=== PATIENT | male | born 1985 | race Caucasian/White ===

== ENCOUNTER 2018-10-16 01:47 | Inpatient (IN) | payer MEDICAID, OTHER ==
[~2018-10-16] VITALS: Ht 162.6 cm; Wt 60.3 kg
[2018-10-16] VITALS (7 sets, daily range): BP systolic 124–145; BP diastolic 79–94; PULSE 90–111; RESP 20; Ht 162.6 cm; Wt 60.3 kg
[~2018-10-16 01:47] MED LIST: CLON0.1T95 PO; METO25TA4 PO; SEVE800T7 PO
[2018-10-16] MEDS ORDERED: VANCOMYCIN 1 GM (PMX) 250 ML IVPB STA (01:58)
[2018-10-16] MEDS ORDERED: CEFEPIME 2GM/50 ML (PMX) 50 ML IVPB STA (01:58)
[2018-10-16] MEDS ORDERED: BISACODYL (EC) 5 MG TAB PO PRN (03:00)
[2018-10-16] MEDS ORDERED: ONDANSETRON 4 MG INJ IV PRN (03:00)
[2018-10-16] MEDS ORDERED: NACL 0.9% 3 ML SYG IV SCH (03:00)
[2018-10-16] MEDS ORDERED: DOCUSATE SODIUM 100 MG CAP PO PRN (03:00)
--- NOTE | 2018-10-16 03:13 | ERD ---
ER Documentation Chief Complaint Chief Complaint BACK PAIN/ POSTERIOR PLEURAL PAIN X'S 1 DAY. COUGH X'S 3 DAYS HPI This is a 33-year-old male who presents for evaluation of pleural pain, and fever for the last day. Patient has been having a cough with productive sputum. He has no nausea or vomiting, he has not had hemoptysis, he has not had leg swelling. He has had no shortness of breath. ROS All systems reviewed and are negative except as per history of present illness. Medications Home Meds Reported Medications Metoprolol Tartrate* (Lopressor*) 25 Mg Tablet, 25 MG PO DAILY, TAB 10/14/14 Sevelamer Carbonate* (Renvela*) 800 Mg Tablet, 5 TAB PO TID, TAB 10/14/14 Clonidine Hcl (KAPVAY) 0.1 Mg Tab.er.12h, 0.1 MG PO DAILY 02/18/13 Allergies Allergies: Coded Allergies: No Known Allergy (Unverified , 10/14/14) PMhx/Soc History of Surgery: No Anesthesia Reaction: No Hx Neurological Disorder: No Hx Respiratory Disorders: No Hx Cardiac Disorders: Yes (HTN, HD ()) Hx Psychiatric Problems: No Hx Miscellaneous Medical Probl: Yes (KIDNEY PROBLEMS ON DIALYSILS) Hx Alcohol Use: No Hx Substance Use: No Hx Tobacco Use: No Smoking Status: Never smoker Physical Exam Vitals Vital Signs Date Temp Pulse Resp B/P (MAP) Pulse Ox O2 O2 Flow FiO2 Time Delivery Rate 10/16/18 100.4 108 20 138/92 99 01:50 (107) Physical Exam Const: No acute distress, nontoxic-appearing Head: Atraumatic Eyes: Normal Conjunctiva ENT: Normal External Ears, Nose and Mouth. Neck: Full range of motion. No meningismus. Resp: Clear to auscultation bilaterally, no wheezes rales or rhonchi Cardio: Regular rate and rhythm, no murmurs Abd: Soft, non tender, non distended. Normal bowel sounds Skin: No petechiae or rashes Back: No midline or flank tenderness Ext: No cyanosis, or edema Neur: Awake and alert Psych: Normal Mood and Affect Result Diagram: 10/16/18 0206 10/16/18 0206 Results 24 hrs Laboratory Tests Test 10/16/18 02:06 10/16/18 02:12 White Blood Count 11.8 10^3/ul Red Blood Count 4.08 10^6/ul Hemoglobin 12.8 g/dl Hematocrit 39.1 % Mean Corpuscular Volume 95.8 fl Mean Corpuscular Hemoglobin 31.4 pg Mean Corpuscular Hemoglobin Concent 32.7 g/dl Red Cell Distribution Width 12.9 % Platelet Count 195 10^3/UL Mean Platelet Volume 9.5 fl Immature Granulocytes % 0.300 % Neutrophils % 77.1 % Lymphocytes % 14.2 % Monocytes % 7.8 % Eosinophils % 0.3 % Basophils % 0.3 % Nucleated Red Blood Cells % 0.0 /100WBC Immature Granulocytes # 0.040 10^3/ul Neutrophils # 9.1 10^3/ul Lymphocytes # 1.7 10^3/ul Monocytes # 0.9 10^3/ul Eosinophils # 0.0 10^3/ul Basophils # 0.0 10^3/ul Nucleated Red Blood Cells # 0.0 10^3/ul Prothrombin Time 12.9 Sec Prothrombin Time Ratio 1.0 INR International Normalized Ratio 0.96 Activated Partial Thromboplast Time 34.9 Sec Sodium Level 142 mmol/L Potassium Level 4.9 mmol/L Chloride Level 96 mmol/L Carbon Dioxide Level 30 mmol/L Anion Gap 16 Blood Urea Nitrogen 47 mg/dl Creatinine Pending Est Glomerular Filtrat Rate mL/min Pending Glucose Level 104 mg/dl Lactic Acid Level 1.1 mmol/L Calcium Level 9.2 mg/dl Total Bilirubin 0.4 mg/dl Direct Bilirubin 0.00 mg/dl Indirect Bilirubin 0.4 mg/dl Aspartate Amino Transf (AST/SGOT) 9 IU/L Alanine Aminotransferase (ALT/SGPT) 24 IU/L Alkaline Phosphatase 95 IU/L Troponin I Pending Total Protein 7.7 g/dl Albumin 4.6 g/dl Globulin 3.10 g/dl Albumin/Globulin Ratio 1.48 POC Venous Lactate 1.1 mmol/L Current Medications Medications Dose Sig/Arturo Start Time Status Last (Trade) Ordered Route PRN Stop Time Admin Dose Reason Admin Vancomycin 250 ml @ ONCE STAT 10/16/18 10/16/18 HCl 125 mls/hr IVPB 01:58 02:52 10/16/18 03:57 Cefepime HCl 50 ml @ ONCE STAT 10/16/18 DC 10/16/18 100 mls/hr IVPB 01:58 02:28 10/16/18 02:27 Ceftriaxone 50 ml @ Q24H IVPB 10/16/18 Sodium 100 mls/hr 09:00 Azithromycin 250 ml @ Q24H IVPB 10/16/18 250 mls/hr 08:00 IV Flush 3 ml PER 10/16/18 (NS 3 ml) PROTOCOL IV 03:00 Ondansetron 4 mg Q6H PRN 10/16/18 HCl (Zofran IV 03:00 Inj) NAUSEA/VOMITI NG 650 mg Q6H PRN 10/16/18 Acetaminophen PO .PAIN 1-3 03:00 (Tylenol OR TEMP Tab) Docusate 100 mg Q12H PRN 10/16/18 Sodium PO 03:00 (Colace) .CONSTIPATION Bisacodyl 5 mg DAILY PRN 10/16/18 (Dulcolax) PO 03:00 .CONSTIPATION Procedures/MDM Is a 33-year-old male who presents for evaluation of fever, on exam, patient is nontoxic-appearing. He has end-stage renal disease, and is on dialysis, thus he is at high risk for infection, and he met sepsis criteria, a code sepsis was called, his lactate was within normal limits, he had no evidence of severe sepsis or septic shock. As his symptoms were most likely infectious in nature, I have a lower suspicion for pulmonary embolism, I discussed findings with patient, he will be treated with broad-spectrum antibiotics, with vancomycin and cefepime. He remained normotensive, and he is anuric, thus I do not feel that he should receive 30 cc/kg of IV fluids, as this may put him into pulmonary edema. Accepting Care Team: Current data and ongoing care discussed. Primary: [place] Consulting: None Outstanding Data: none EKG: Rate/Rhythm: Sinus tachycardia QRS, ST, T-waves: No changes consistent w/ acute ischemia Impression: No evidence of ischemia or arrhythmia Departure Diagnosis: Primary Impression: Fever Fever type: unspecified Qualified Codes: R50.9 - Fever, unspecified Additional Impressions: Cough Pneumonia Pneumonia type: due to unspecified organism Laterality: unspecified laterality Lung location: unspecified part of lung Qualified Codes: J18.9 - Pneumonia, unspecified organism Condition: HAIR Philippe MD October 16, 2018 03:13
[2018-10-16] MEDS ORDERED: CALC667C PO (03:23)
[2018-10-16] MEDS ORDERED: NEPH PO (03:23)
[2018-10-16] MEDS ORDERED: DIPHENHYDRAMINE 50 MG INJ IV ONE (05:00)
[2018-10-16] MEDS ORDERED: DIPHENHYDRAMINE 50 MG CAP PO ONE (05:30)
[2018-10-16] MEDS ORDERED: SOD CHLORIDE 0.9% 250 ML IV ONE (05:30)
--- NOTE | 2018-10-16 05:30 | HP ---
Date/Time of Note Date/Time of Note DATE: 10/16/18 TIME: 05:24 Assessment/Plan VTE Prophylaxis SCD applied (from Nsg): Yes Pharmacological prophylaxis: NA/contraindicated Pharm contraindication: low risk/ambulating Lines/Catheters IV Catheter Type (from Nrsg): Saline Lock Assessment/Plan Hospital Course This is a 33-year-old male being admitted to the [facility] floor for: #1 sepsis: Viral versus bacterial, suspect community-acquired pneumonia. Chest x-ray though is clear. Will treat at the current time with ceftriaxone and azithromycin. Patient is already received vancomycin and cefepime in the emergency department. Blood cultures are pending. #2 suspect community-acquired pneumonia: Possibly atypical. Chest x-ray is clear on exam. Nonetheless given his sepsis and cough with productive phlegm will treat with antibiotics of ceftriaxone and azithromycin. #3 left flank pain: We will obtain a CT of the abdomen pelvis without contrast to further evaluate. #4 end-stage renal disease: Patient is on hemodialysis Friday. Will consult nephrology. Resume home medications. #5 hypertension: Resume patient's home blood pressure medications. #6 DVT GI prophylaxis: SCDs, no GI prophylaxis indicated Further treatment strategy will be implemented as per the clinical course. Result Diagram: 10/16/18 0206 10/16/18 0206 Results 24hrs Laboratory Tests Test 10/16/18 02:06 10/16/18 02:12 White Blood Count 11.8 #H Red Blood Count 4.08 L Hemoglobin 12.8 L Hematocrit 39.1 L Mean Corpuscular Volume 95.8 Mean Corpuscular Hemoglobin 31.4 Mean Corpuscular Hemoglobin Concent 32.7 Red Cell Distribution Width 12.9 Platelet Count 195 Mean Platelet Volume 9.5 Immature Granulocytes % 0.300 Neutrophils % 77.1 H Lymphocytes % 14.2 L Monocytes % 7.8 Eosinophils % 0.3 Basophils % 0.3 Nucleated Red Blood Cells % 0.0 Immature Granulocytes # 0.040 H Neutrophils # 9.1 H Lymphocytes # 1.7 Monocytes # 0.9 Eosinophils # 0.0 Basophils # 0.0 Nucleated Red Blood Cells # 0.0 Prothrombin Time 12.9 Prothrombin Time Ratio 1.0 INR International Normalized Ratio 0.96 Activated Partial Thromboplast Time 34.9 Sodium Level 142 Potassium Level 4.9 Chloride Level 96 L Carbon Dioxide Level 30 Anion Gap 16 H Blood Urea Nitrogen 47 H Creatinine 13.58 H Est Glomerular Filtrat Rate mL/min 4 L Glucose Level 104 Lactic Acid Level 1.1 Calcium Level 9.2 Total Bilirubin 0.4 Direct Bilirubin 0.00 Indirect Bilirubin 0.4 Aspartate Amino Transf (AST/SGOT) 9 L Alanine Aminotransferase (ALT/SGPT) 24 Alkaline Phosphatase 95 Troponin I < 0.012 Total Protein 7.7 Albumin 4.6 Globulin 3.10 Albumin/Globulin Ratio 1.48 POC Venous Lactate 1.1 HPI/ROS Admit Date/Time Admit Date/Time Hx of Present Illness Chief complaint: Fever and cough x2 days This is a 33-year-old male who presents for evaluation of pleural pain, and fever for 2 days.. Patient has been having a cough with productive sputum. He has no nausea or vomiting, he has not had hemoptysis. He has had no shortness of breath. He does report his last dialysis was on . He also is reporting left-sided flank pain. Patient is oliguric. Allergies: NKDA Medications: See Jul Const: As per HPI Eyes : No pain discharge or redness or change in visual acuity ENT: No pain, sore throat, congestion, congestion, dysphagia or discharge Respiratory: As per HPI Cardiovascular: No chest pain, palpitation, PND, or edema GI : no change in appetite, abdominal pain, nausea, vomiting, diarrhea, constipation, or change in the color his stool Genitourinary: No dysuria, hematuria, flank pain , discharge or CVA tenderness Musculoskeletal: As per HPI Skin: No rash, bruising or hives Neuro: No headache, dizziness, syncope, seizure, focal weakness Endocrine: No polyuria, polydipsia, temperature intolerance Psych: No hallucination, depression, anxiety or suicidal ideation PMH/Family/Social Past Medical History End-stage renal disease on hemodialysis Friday, hypertension Medications Current Medications Ceftriaxone Sodium 50 ml @ 100 mls/hr Q24H IVPB ; Start 10/16/18 at 09:00 Azithromycin 250 ml @ 250 mls/hr Q24H IVPB ; Start 10/16/18 at 08:00 IV Flush (NS 3 ml) 3 ml PER PROTOCOL IV ; Start 10/16/18 at 03:00 Ondansetron HCl (Zofran Inj) 4 mg Q6H PRN IV NAUSEA/VOMITING; Start 10/16/18 at 03:00 Acetaminophen (Tylenol Tab) 650 mg Q6H PRN PO .PAIN 1-3 OR TEMP; Start 10/16/18 at 03:00 Docusate Sodium (Colace) 100 mg Q12H PRN PO .CONSTIPATION; Start 10/16/18 at 03:00 Bisacodyl (Dulcolax) 5 mg DAILY PRN PO .CONSTIPATION; Start 10/16/18 at 03:00 Diphenhydramine HCl (Benadryl) 50 mg ONCE ONCE PO ; Start 10/16/18 at 05:30; Stop 10/16/18 at 05:31; Status UNV Coded Allergies: No Known Allergy (Unverified , 10/16/18) Past Surgical History Left upper extremity AV fistula Family History Significant Family History: no pertinent family hx Social History Alcohol Use: none Smoking Status: Never smoker Drug Use: none Exam/Review of Systems Vital Signs Vitals Vital Signs Date Temp Pulse Resp B/P (MAP) Pulse Ox O2 O2 Flow FiO2 Time Delivery Rate 10/16/18 98.1 97 18 146/98 95 Room Air 05:03 (114) Exam Exam General: Lying in bed in no acute distress, but he does report discomfort of the left flank HEENT: Atraumatic, normocephalic. The pupils are equal, round and reactive. Extraocular motor are intact Neck: Supple with full range of motion. No rigidity or meningismus Chest: Nontender Lungs: Coarse breath sounds bilaterally, nonlabored breathing, clear phlegm Heart: Normal S1-S2, Regular rhythm and rate. No murmur, S3, or S4 Abdomen: Soft , nontender, nondistended , bowel sounds are present. No guarding no rebound tenderness , No masses or organomegaly. No costovertebral temporal angle mass Extremities: Normal to inspection, no edema no cyanosis Skin: Left upper extremity AV fistula Neurologic: Normal mental status, speech normal, cranial nerves II through XII are intact, motor and sensory are intact, no focal weakness Additional Comments PROCEDURE: Chest. CLINICAL INDICATION: Chest pain. TECHNIQUE: Single frontal view of the chest was obtained. COMPARISON: 02/18/2013. FINDINGS: The cardiac silhouette is within normal limits. The aortic arch is unremarkable. There is no focal consolidation, vascular congestion or pleural effusion. There is no pneumothorax. IMPRESSION: No evidence for active cardiopulmonary disease. .Moises Hilario MD, Date Time Electronically viewed and signed by .Moises Hilario MD, on 10/16/2018 03:51 .T/ CC: HAIR BANKS MD [id number] JONELLE BENAVIDES October 16, 2018 05:30
[2018-10-16] MEDS ORDERED: AZITHROMYCIN 500MG/NS (PMX) 250 ML IVPB SCH (08:00)
[2018-10-16] MEDS ORDERED: CEFTRIAXONE 2 GM/50 ML (PMX) 50 ML IVPB SCH (09:00)
[2018-10-16] MEDS: ACETAMINOPHEN 325 MG TAB PO PRN (09:29)
--- NOTE | 2018-10-16 10:16 | QN ---
Documentation Comment 33 yo M w/ESRD/HD tx, here w/cough/subjective fevers/left upper back pain,found to have left sided PNA.. We will change antibiotic to cefepime and vancomycin to cover healthcare acquired pneumonia in the setting of hemodialysis treatment. Breathing treatments and cough medications. NSAIDs for pleuritic pain. Obtain a sputum cu lture if possible. Follow-up nephrology recommendations regarding dialysis sessions. Patient was seen in collaboration with Dr. Wilson. ADI KATE NP October 16, 2018 10:16
[2018-10-16] MEDS ORDERED: VANCOMYCIN IV PER PHARMACY XX SCH (10:30)
[2018-10-16] MEDS: GUAIFENESIN/DM (SR) TAB PO SCH ×2 (10:54→19:35)
--- NOTE | 2018-10-16 13:37 | RADRPT ---
LAVELL COKER :1985 Sex:M Status: RECONFIRMED ACC:[id number] Exam DATE:2018-10-16 02:07:24 Vent Rate: 101 bpm RR Interval: 0 msec GA Interval: 152 msec QRS Duration: 90 msec QT Interval: 330 msec QTC Interval: 427 msec P-R-T Eitzen: 63 - 70 - 61 degrees Sinus tachycardia Possible Left atrial enlargement Borderline ECG Electronically Signed By: [facility]
[2018-10-16] MEDS: ALBUTEROL/IPRATROPIUM (NEB) 3 ML AMP HHN SCH ×2 (14:33→19:38)
[2018-10-16] MEDS: morphine 2 MG INJ IV PRN ×3 (15:34→23:13)
[2018-10-16] MEDS: IBUPROFEN 400 MG TAB PO PRN (23:11)
[2018-10-17] VITALS (22 sets, daily range): BP systolic 109–166; BP diastolic 70–110; PULSE 71–89; RESP 16–24
[2018-10-17] MEDS: CEFEPIME 1GM/50 ML (PMX) 50 ML IVPB SCH (03:05)
[2018-10-17] MEDS: GUAIFENESIN/DM (SR) TAB PO SCH ×2 (08:31→21:01)
[2018-10-17] MEDS: IBUPROFEN 400 MG TAB PO PRN ×4 (08:31→20:37)
[2018-10-17] MEDS: ALBUTEROL/IPRATROPIUM (NEB) 3 ML AMP HHN SCH ×3 (08:37→20:32)
--- NOTE | 2018-10-17 10:29 | PN ---
Date/Time of Note Date/Time of Note DATE: 10/17/18 TIME: 10:29 Assessment/Plan VTE Prophylaxis Risk score (from Nsg)>0 risk: 1 SCD applied (from Nsg): Yes Pharmacological prophylaxis: NA/contraindicated Pharm contraindication: low risk/ambulating Lines/Catheters IV Catheter Type (from Nrs): Saline Lock Assessment/Plan Hospital Course SUBJECTIVE: Lying in bed comfortably. With improved left upper back pain. No fevers. No coughing. OBJECTIVE: Vital signs-see below PHYSICAL EXAM: Constitutional: Adequately built,not in acute distress. HEENT: Head atraumatic and normocephalic. Eyes: Extraocular muscles intact. Anicteric sclerae. Pupils equal bilaterally, reactive to light. NECK: Supple without lymph node. CHEST: Clear and good breath sounds equally. No wheezing. No rhonchi. HEART: S1, S2. Regular rate and rhythm. ABDOMEN: Soft/non tender with no rebound tenderness. Bowel sounds were present. EXTREMITIES: No cyanosis, clubbing or edema. NEUROLOGIC: Alert and oriented x3. No focal deficit. No sensory deficit. PSYCHOSOCIAL: No signs of depression. INTEGUMENTARY: No open wounds. Access: Left upper extremity AV shunt ASSESSMENT AND PLAN:33 yo M w/ESRD/HD tx, here w/cough/subjective fevers/left upper back pain,found to have left sided PNA.. Healthcare acquired pneumonia. -Clinically improving -Continue cefepime/vancomycin with likely transition to oral tomorrow -PRN bronchodilators, cough medications ESRD/HD TTS -Dialysis today -Management per supervisor hand workers Anemia of ESRD -Stable H&H -Epogen per nephrology team as indicated Hyperkalemia -Management per nephrology Hypertension -Stable Mineral bone disorders -Resume renal vitamins/phosphate binders DVT prophylaxis: SCDs Disposition: Patient is scheduled for hemodialysis. Monitor renal function closely. Continue IV antimicrobial with possible oral transition in 24 to 48 hours. Patient was seen in collaboration with Dr. Preciado. Result Diagram: 10/17/18 0529 10/17/18 0529 Results 24hrs Laboratory Tests Test 10/17/18 05:29 White Blood Count 9.3 # Red Blood Count 3.34 L Hemoglobin 10.5 L Hematocrit 32.4 L Mean Corpuscular Volume 97.0 Mean Corpuscular Hemoglobin 31.4 Mean Corpuscular Hemoglobin Concent 32.4 Red Cell Distribution Width 12.7 Platelet Count 157 Mean Platelet Volume 10.3 Immature Granulocytes % 0.400 Neutrophils % 71.4 Lymphocytes % 18.4 Monocytes % 8.5 Eosinophils % 1.0 Basophils % 0.3 Nucleated Red Blood Cells % 0.0 Immature Granulocytes # 0.040 H Neutrophils # 6.7 Lymphocytes # 1.7 Monocytes # 0.8 Eosinophils # 0.1 Basophils # 0.0 Nucleated Red Blood Cells # 0.0 Sodium Level 137 Potassium Level 5.7 H Chloride Level 97 Carbon Dioxide Level 27 Anion Gap 13 Blood Urea Nitrogen 66 H Creatinine 17.54 #H Est Glomerular Filtrat Rate mL/min 3 L Glucose Level 88 Calcium Level 9.0 Phosphorus Level 5.2 H Magnesium Level 2.8 H Total Bilirubin 0.2 Direct Bilirubin 0.00 Indirect Bilirubin 0.2 Aspartate Amino Transf (AST/SGOT) < 8 L Alanine Aminotransferase (ALT/SGPT) 15 Alkaline Phosphatase 62 Total Protein 6.6 # Albumin 3.7 Globulin 2.90 Albumin/Globulin Ratio 1.27 Exam/Review of Systems Exam Vitals Vital Signs Date Temp Pulse Resp B/P (MAP) Pulse Ox O2 O2 Flow FiO2 Time Delivery Rate 10/17/18 96 21 08:42 10/17/18 83 20 08:41 10/17/18 97.4 109/70 04:00 (83) 10/16/18 Room Air 14:53 Intake and Output 10/16/18 10/16/18 10/17/18 1515:00 23:00 07:00 IntakeIntake Total 600 ml 250 ml BalanceBalance 600 ml 250 ml Results Results 24hrs Laboratory Tests Test 10/17/18 05:29 White Blood Count 9.3 # Red Blood Count 3.34 L Hemoglobin 10.5 L Hematocrit 32.4 L Mean Corpuscular Volume 97.0 Mean Corpuscular Hemoglobin 31.4 Mean Corpuscular Hemoglobin Concent 32.4 Red Cell Distribution Width 12.7 Platelet Count 157 Mean Platelet Volume 10.3 Immature Granulocytes % 0.400 Neutrophils % 71.4 Lymphocytes % 18.4 Monocytes % 8.5 Eosinophils % 1.0 Basophils % 0.3 Nucleated Red Blood Cells % 0.0 Immature Granulocytes # 0.040 H Neutrophils # 6.7 Lymphocytes # 1.7 Monocytes # 0.8 Eosinophils # 0.1 Basophils # 0.0 Nucleated Red Blood Cells # 0.0 Sodium Level 137 Potassium Level 5.7 H Chloride Level 97 Carbon Dioxide Level 27 Anion Gap 13 Blood Urea Nitrogen 66 H Creatinine 17.54 #H Est Glomerular Filtrat Rate mL/min 3 L Glucose Level 88 Calcium Level 9.0 Phosphorus Level 5.2 H Magnesium Level 2.8 H Total Bilirubin 0.2 Direct Bilirubin 0.00 Indirect Bilirubin 0.2 Aspartate Amino Transf (AST/SGOT) < 8 L Alanine Aminotransferase (ALT/SGPT) 15 Alkaline Phosphatase 62 Total Protein 6.6 # Albumin 3.7 Globulin 2.90 Albumin/Globulin Ratio 1.27 Medications Medication Current Medications IV Flush (NS 3 ml) 3 ml PER PROTOCOL IV ; Start 10/16/18 at 03:00 Ondansetron HCl (Zofran Inj) 4 mg Q6H PRN IV NAUSEA/VOMITING; Start 10/16/18 at 03:00 Acetaminophen (Tylenol Tab) 650 mg Q6H PRN PO .PAIN 1-3 OR TEMP Last administered on 10/16/18at 09:29; Admin Dose 650 MG; Start 10/16/18 at 03:00 Docusate Sodium (Colace) 100 mg Q12H PRN PO .CONSTIPATION; Start 10/16/18 at 03:00 Bisacodyl (Dulcolax) 5 mg DAILY PRN PO .CONSTIPATION; Start 10/16/18 at 03:00 Cefepime HCl 50 ml @ 100 mls/hr Q24H IVPB Last administered on 10/17/18at 03:05; Admin Dose 100 MLS/HR; Start 10/17/18 at 04:00 Vancomycin HCl (Vanco Iv Per Pharmacy) VANCOMYCIN PER PHARMACY PER PROTOCOL XX ; Start 10/16/18 at 10:30 Albuterol/ Ipratropium (Duoneb) 3 ml Q6HWA RESP THERAPY HHN Last administered on 10/17/18at 08:37; Admin Dose 3 ML; Start 10/16/18 at 14:00 Guaifenesin/ Dextromethorphan (Mucinex Dm) 1 tab BID PO Last administered on 10/17/18at 08:31; Admin Dose 1 TAB; Start 10/16/18 at 10:30 Ibuprofen (Motrin) 400 mg Q6H PRN PO MILD PAIN(1-3) OR TEMP>38C Last adminis tered on 10/17/18at 08:31; Admin Dose 400 MG; Start 10/16/18 at 10:30 Morphine Sulfate (morphine) 1 mg Q4H PRN IV SEVERE PAIN LEVEL 7-10 Last administered on 10/16/18at 23:13; Admin Dose 1 MG; Start 10/16/18 at 14:30 ADI KATE NP October 17, 2018 10:29
--- NOTE | 2018-10-17 10:38 | PN ---
DATE: 10/17/2018 SUBJECTIVE: The patient is stable. No events overnight. The patient is clinically improving. OBJECTIVE: VITAL SIGNS: Blood pressure is 109/70, respiration 18, pulse 71, temperature 97.4. HEENT: Head is normocephalic. NECK: Supple. HEART: Regular rate. LUNGS: Show diminished breath sounds at base. ABDOMEN: Soft, nontender to palpation. No rebound or guarding. EXTREMITIES: Negative for clubbing, cyanosis, no edema. DERMATOLOGIC: No rashes. MUSCULOSKELETAL: No joint effusion. NEUROLOGIC: No change in exam. MEDICATIONS: Have been reviewed. LABORATORY DATA: Has been reviewed. ASSESSMENT AND PLAN: 1. End-stage renal disease. The patient is scheduled for dialysis today. We will dialyze for 3 pinky rs on a 2K bath, calcium 2.5. 2. Anemia. Continue to monitor hemoglobin and hematocrit levels. 3. Mineral bone disorder, monitor calcium and phosphorus levels. Will continue phos binders as need ed. 4. Hypertension. Continue current blood pressure regimen. 5. Sepsis secondary to pneumonia. Continue current antibiotic regimen. Dictated By: HANY COLLAZO DO NR/NTS Conf#: [id number] DID#: [id number] CC: JONELLE BENAVIDES MD;*EndCC*
[2018-10-17] MEDS: MULTIVIT/CA CARB/B CMPLX/FA TAB PO SCH (11:30)
[2018-10-17] MEDS: CALCIUM ACETATE 667 MG CAP PO SCH ×2 (12:56→21:01)
[2018-10-17] MEDS: SEVELAMER CARBONATE 0.8 GM PKT PO SCH ×2 (12:57→21:01)
[2018-10-18] VITALS (19 sets, daily range): BP systolic 117–158; BP diastolic 73–103; PULSE 72–97; RESP 16–20
[2018-10-18] MEDS: CEFEPIME 1GM/50 ML (PMX) 50 ML IVPB SCH (03:56)
[2018-10-18] MEDS: ACETAMINOPHEN 325 MG TAB PO PRN (03:56)
[2018-10-18] MEDS: ALBUTEROL/IPRATROPIUM (NEB) 3 ML AMP HHN SCH ×3 (07:38→19:56)
[2018-10-18] MEDS: SEVELAMER CARBONATE 0.8 GM PKT PO SCH ×3 (08:32→21:49)
[2018-10-18] MEDS: MULTIVIT/CA CARB/B CMPLX/FA TAB PO SCH (08:33)
[2018-10-18] MEDS: GUAIFENESIN/DM (SR) TAB PO SCH ×2 (08:33→21:48)
[2018-10-18] MEDS: CALCIUM ACETATE 667 MG CAP PO SCH ×3 (08:33→21:48)
[2018-10-18] MEDS: METOPROLOL 25 MG TAB PO SCH (08:33)
--- NOTE | 2018-10-18 11:57 | PN ---
Date/Time of Note Date/Time of Note DATE: 10/18/18 TIME: 11:55 Assessment/Plan VTE Prophylaxis Risk score (from Nsg)>0 risk: 2 SCD applied (from Nsg): Yes Pharmacological prophylaxis: NA/contraindicated Pharm contraindication: low risk/ambulating Lines/Catheters [facility]ter [facility]from [facility] Saline Lock Assessment/Plan Hospital Course SUBJECTIVE: Patient coughed out tiny amount of blood-streaked sputum. No shortness of breath, nausea, vomiting, abdominal pain, fever, chills.. OBJECTIVE: Vital signs-see below PHYSICAL EXAM: Constitutional: Adequately built,not in acute distress. HEENT: Head atraumatic and normocephalic. Eyes: Extraocular muscles intact. Anicteric sclerae. Pupils equal bilaterally, reactive to light. NECK: Supple without lymph node. CHEST: Clear and good breath sounds equally. No wheezing. No rhonchi. HEART: S1, S2. Regular rate and rhythm. ABDOMEN: Soft/non tender with no rebound tenderness. Bowel sounds were present. EXTREMITIES: No cyanosis, clubbing or edema. NEUROLOGIC: Alert and oriented x3. No focal deficit. No sensory deficit. PSYCHOSOCIAL: No signs of depression. INTEGUMENTARY: No open wounds. Access: Left upper extremity AV shunt ASSESSMENT AND PLAN:33 yo M w/ESRD/HD tx, here w/cough/subjective fevers/left upper back pain,found to have left sided PNA.. Healthcare acquired pneumonia. -Clinically improving -Continue cefepime/vancomycin -PRN bronchodilators, cough medications -Patient with mild hemoptysis: Go ahead and obtain a contrast CT as patient is getting hemodialysis today. Schedule test prior to hemodialysis. Go ahead and obtain sputum cytology and d-dimer. 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 Follow-up chest CT. DC planning in 24 hours. Patient was seen in collaboration with Dr. Preciado. Result Diagram: 10/18/18 0508 10/18/18 0508 Results 24hrs Laboratory Tests Test 10/18/18 05:08 White Blood Count 7.8 Red Blood Count 3.68 L Hemoglobin 11.4 L Hematocrit 35.3 L Mean Corpuscular Volume 95.9 Mean Corpuscular Hemoglobin 31.0 Mean Corpuscular Hemoglobin Concent 32.3 Red Cell Distribution Width 12.8 Platelet Count 191 # Mean Platelet Volume 9.9 Immature Granulocytes % 0.500 H Neutrophils % 75.1 Lymphocytes % 13.8 L Monocytes % 8.1 Eosinophils % 2.2 Basophils % 0.3 Nucleated Red Blood Cells % 0.0 Immature Granulocytes # 0.040 H Neutrophils # 5.9 Lymphocytes # 1.1 Monocytes # 0.6 Eosinophils # 0.2 Basophils # 0.0 Nucleated Red Blood Cells # 0.0 Sodium Level 138 Potassium Level 5.2 H Chloride Level 99 Carbon Dioxide Level 25 Anion Gap 14 H Blood Urea Nitrogen 40 #H Creatinine 12.94 #H Est Glomerular Filtrat Rate mL/min 4 L Glucose Level 92 Calcium Level 9.4 Phosphorus Level 7.3 #H Total Bilirubin 0.2 Direct Bilirubin 0.00 Indirect Bilirubin 0.2 Aspartate Amino Transf (AST/SGOT) < 8 L Alanine Aminotransferase (ALT/SGPT) 11 L Alkaline Phosphatase 73 Total Protein 7.3 Albumin 4.2 Globulin 3.10 Albumin/Globulin Ratio 1.35 Random Vancomycin Level 12.9 Exam/Review of Systems Exam Vitals Vital Signs Date Temp Pulse Resp B/P (MAP) Pulse Ox O2 O2 Flow FiO2 Time Delivery Rate 10/18/18 97.8 75 20 132/83 96 Room Air 11:28 (99) 10/18/18 21 07:43 Intake and Output 10/17/18 10/17/18 10/18/18 1515:00 23:00 07:00 IntakeIntake Total 600 ml 250 ml OutputOutput Total 3000 ml BalanceBalance -2400 ml 250 ml Results Results 24hrs Laboratory Tests Test 10/18/18 05:08 White Blood Count 7.8 Red Blood Count 3.68 L Hemoglobin 11.4 L Hematocrit 35.3 L Mean Corpuscular Volume 95.9 Mean Corpuscular Hemoglobin 31.0 Mean Corpuscular Hemoglobin Concent 32.3 Red Cell Distribution Width 12.8 Platelet Count 191 # Mean Platelet Volume 9.9 Immature Granulocytes % 0.500 H Neutrophils % 75.1 Lymphocytes % 13.8 L Monocytes % 8.1 Eosinophils % 2.2 Basophils % 0.3 Nucleated Red Blood Cells % 0.0 Immature Granulocytes # 0.040 H Neutrophils # 5.9 Lymphocytes # 1.1 Monocytes # 0.6 Eosinophils # 0.2 Basophils # 0.0 Nucleated Red Blood Cells # 0.0 Sodium Level 138 Potassium Level 5.2 H Chloride Level 99 Carbon Dioxide Level 25 Anion Gap 14 H Blood Urea Nitrogen 40 #H Creatinine 12.94 #H Est Glomerular Filtrat Rate mL/min 4 L Glucose Level 92 Calcium Level 9.4 Phosphorus Level 7.3 #H Total Bilirubin 0.2 Direct Bilirubin 0.00 Indirect Bilirubin 0.2 Aspartate Amino Transf (AST/SGOT) < 8 L Alanine Aminotransferase (ALT/SGPT) 11 L Alkaline Phosphatase 73 Total Protein 7.3 Albumin 4.2 Globulin 3.10 Albumin/Globulin Ratio 1.35 Random Vancomycin Level 12.9 Medications Medication Current Medications IV Flush (NS 3 ml) 3 ml PER PROTOCOL IV ; Start 10/16/18 at 03:00 Ondansetron HCl (Zofran Inj) 4 mg Q6H PRN IV NAUSEA/VOMITING; Start 10/16/18 at 03:00 Acetaminophen (Tylenol Tab) 650 mg Q6H PRN PO .PAIN 1-3 OR TEMP Last administered on 10/18/18at 03:56; Admin Dose 650 MG; Start 10/16/18 at 03:00 Docusate Sodium (Colace) 100 mg Q12H PRN PO .CONSTIPATION; Start 10/16/18 at 03:00 Bisacodyl (Dulcolax) 5 mg DAILY PRN PO .CONSTIPATION; Start 10/16/18 at 03:00 Cefepime HCl 50 ml @ 100 mls/hr Q24H IVPB Last administered on 10/18/18at 0 3:56; Admin Dose 100 MLS/HR; Start 10/17/18 at 04:00 Vancomycin HCl (Vanco Iv Per Pharmacy) VANCOMYCIN PER PHARMACY PER PROTOCOL XX ; Start 10/16/18 at 10:30 Albuterol/ Ipratropium (Duoneb) 3 ml Q6HWA RESP THERAPY HHN Last administered on 10/18/18at 07:38; Admin Dose 3 ML; Start 10/16/18 at 14:00 Guaifenesin/ Dextromethorphan (Mucinex Dm) 1 tab BID PO Last administered on 10/18/18at 08:33; Admin Dose 1 TAB; Start 10/16/18 at 10:30 Ibuprofen (Motrin) 400 mg Q6H PRN PO MILD PAIN(1-3) OR TEMP>38C Last administered on 10/17/18 20:03; Admin Dose 400 MG; Start 10/16/18 at 10:30 Morphine Sulfate (morphine) 1 mg Q4H PRN IV SEVERE PAIN LEVEL 7-10 Last administered on 10/16/18 23:13; Admin Dose 1 MG; Start 10/16/18 at 14:30 Calcium Acetate (Phoslo) 667 mg TID PO Last administered on 10/18/18 08:33; Admin Dose 667 MG; Start 10/17/18 at 13:00 Metoprolol Tartrate (Lopressor) 25 mg DAILY PO Last administered on 10/18/18 08:33; Admin Dose 25 MG; Start 10/18/18 at 09:00 Multivit/Ca Carb/ B Cmplx/FA/Prenat (Adelina-Fanta) 1 tab DAILY PO Last administered on 10/18/18 08:33; Admin Dose 1 TAB; Start 10/17/18 at 10:30 Sevelamer Carbonate (Renvela) 0.8 gm TID PO Last administered on 10/18/18 08 :32; Admin Dose 0.8 GM; Start 10/17/18 at 13:00 Vancomycin HCl 250 ml @ 125 mls/hr 1200 IVPB Last administered on 10/18/18 11:42; Admin Dose 125 MLS/HR; Start 10/18/18 at 12:00; Stop 10/18/18 at 19:30 ADI KATE NP October 18, 2018 11:57
[2018-10-18] MEDS ORDERED: VANCOMYCIN 1 GM (PMX) 250 ML IVPB SCH (12:00)
[2018-10-18] MEDS ORDERED: SOD CHLORIDE 0.9% 100 ML ONE (12:42)
[2018-10-18] MEDS ORDERED: IODIXANOL LOCM 100 ML BTL ONE (12:42)
[2018-10-18] MEDS: IBUPROFEN 400 MG TAB PO PRN ×2 (13:10→21:48)
--- NOTE | 2018-10-18 13:24 | PN ---
DATE: 10/18/2018 SUBJECTIVE: The patient is stable. No events overnight. OBJECTIVE: VITAL SIGNS: Blood pressure is 122/86, pulse 78, respirations 20, temperature 97.4. HEENT: Head is normocephalic. NECK: Supple. HEART: Regular rate. LUNGS: Show diminished breath sounds at the base. ABDOMEN: Soft, nontender to palpation without rebound or guarding. EXTREMITIES: Negative for clubbing, cyanosis, no edema. DERMATOLOGIC: No rashes. MUSCULOSKELETAL: No joint effusion. NEUROLOGIC: No change in exam. MEDICATIONS: The patient's medications have been reviewed. LABORATORY DATA: Has been reviewed. ASSESSMENT AND PLAN: 1. End-stage renal disease. The patient had hemodialysis yesterday. The patient remains hyperkalem ic, will have dialysis again today. 2. Anemia. Monitor hemoglobin and hematocrit levels. Will give Epogen as needed. 3. Mineral bone disorder, monitor calcium and phosphorus levels. Will continue phos binders. 4. Hypertension. Continue current blood pressure regimen. Continue ultrafiltration dialysis. 5. Sepsis secondary to pneumonia. Continue current antibiotic regimen. Dictated By: HANY COLLAZO DO NR/NTS Conf#: [id number] DID#: [id number] CC: JONELLE BENAVIDES MD;*EndCC*
[2018-10-19] VITALS (9 sets, daily range): BP systolic 107–142; BP diastolic 65–91; PULSE 73–93; RESP 18–20
[2018-10-19] MEDS: CEFEPIME 1GM/50 ML (PMX) 50 ML IVPB SCH (03:37)
--- NOTE | 2018-10-19 07:30 | CONS ---
DATE OF ADMISSION: 10/16/2018 DATE OF CONSULTATION: 10/16/2018 TYPE OF CONSULTATION: Nephrology. REASON FOR CONSULTATION: disease. PHYSICIAN REQUESTING CONSULT: Dr. Mayer. HISTORY OF PRESENT ILLNESS: This is a 33-year-old male with a past medical history of end-stage amy l disease on dialysis Friday, , Friday, access AV fistula. The patient's primary nephrolo gist is Dr. Melgoza. A history of hypertension, history of anemia, history of mineral bone disorder who presented to [facility] with complaints of cough, fever x2 day. The patient state s he has been having pleuritic chest pain for 2 days, productive of sputum. The patient denies any n ausea, vomiting. The patient upon arrival to the Emergency Room had imaging studies including a ches t x-ray which showed findings of no acute cardiopulmonary disease. CT scan of abdomen and pelvis was also performed which showed no ureterolithiasis, dense acute left lower lobe pneumonia noted. The p atient was started on IV antibiotics and admitted to telemetry for evaluation. From the patient's history, the patient is on dialysis 3 times weekly, last hemodialysis was yesterda y. The patient approximately 2 liters per ultrafiltration with hemodialysis. PAST MEDICAL HISTORY: See above, history of hypertension, history of renal disease, history of anemi a, history of mineral bone disorder. PAST SURGICAL HISTORY: AV fistula. FAMILY HISTORY: No family history of disease. SOCIAL HISTORY: Does not drink, smoke or do drugs. MEDICATIONS: Have been reviewed. REVIEW OF SYSTEMS: A 14-point review of systems conducted. Pertinent positives stated in HPI, other centeno negative. OBJECTIVE: VITAL SIGNS: Blood pressure is 142/94, respirations 20. Temperature 98.9. HEENT: Head is normocephalic. NECK: Supple. HEART: Regular rate. LUNGS: Show diminished breath sounds at base. ABDOMEN: Soft, nontender to palpation without rebound or guarding. EXTREMITIES: Negative for clubbing, cyanosis, no edema. DERMATOLOGIC: No rashes. MUSCULOSKELETAL: No joint effusion. NEUROLOGIC: No change in exam. No focal deficits. MEDICATIONS: Have been reviewed. LABORATORY DATA: Has been reviewed. IMAGING STUDIES: Have been reviewed. ASSESSMENT AND PLAN: This is a 33-year-old male who presents with: 1. Endstage renal disease. The patient has dialysis Friday, and Friday at . Hemod ialysis tomorrow. We will dialyze for 3 hours 3k bath, calcium 2.5, ultrafiltrate as tolerated. 2. Anemia. Monitor hemoglobin and hematocrit levels. Will give Epogen as needed. 3. Mineral bone disorder. Monitor calcium and phosphorus levels. Continue phos binders as needed. 4. Hypertension. Blood pressure is currently controlled. Continue current blood pressure regimen, ultrafiltrate with hemodialysis. 5. Sepsis secondary to Healthcare-associated pneumonia, continue current antibiotic regimen. 6. secondary to pneumonia. Continue current medical plan. Continue antibiotics, nebulizers, . Thank you, Dr. Mayer, for this consult. It will be a pleasure to follow up patient with sandie marie the hospital course. Dictated By: HANY ROY/SANDIP Conf#: [id number] DID#: [id number]
[2018-10-19] MEDS: ALBUTEROL/IPRATROPIUM (NEB) 3 ML AMP HHN SCH ×3 (07:51→20:17)
[2018-10-19] MEDS: CALCIUM ACETATE 667 MG CAP PO SCH ×3 (08:08→20:18)
[2018-10-19] MEDS: MULTIVIT/CA CARB/B CMPLX/FA TAB PO SCH (08:08)
[2018-10-19] MEDS: GUAIFENESIN/DM (SR) TAB PO SCH ×2 (08:08→20:18)
[2018-10-19] MEDS: SEVELAMER CARBONATE 0.8 GM PKT PO SCH (08:09)
[2018-10-19] MEDS: IBUPROFEN 400 MG TAB PO PRN ×2 (08:09→22:58)
[2018-10-19] MEDS: METOPROLOL 25 MG TAB PO SCH (08:09)
--- NOTE | 2018-10-19 09:34 | PN ---
Date/Time of Note Date/Time of Note DATE: 10/19/18 TIME: 09:32 Assessment/Plan VTE Prophylaxis Risk score (from Nsg)>0 risk: 2 SCD applied (from Nsg): Yes Pharmacological prophylaxis: NA/contraindicated Pharm contraindication: low risk/ambulating Lines/Catheters [facility] Assessment/Plan Hospital Course SUBJECTIVE: Continues to have cough and left pleuritic chest pain, improved OBJECTIVE: Vital signs-see below PHYSICAL EXAM: Constitutional: Adequately built,not in acute distress. HEENT: Head atraumatic and normocephalic. Eyes: Extraocular muscles intact. Anicteric sclerae. Pupils equal bilaterally, reactive to light. NECK: Supple without lymph node. CHEST: Clear and good breath sounds equally. No wheezing. No rhonchi. HEART: S1, S2. Regular rate and rhythm. ABDOMEN: Soft/non tender with no rebound tenderness. Bowel sounds were present. EXTREMITIES: No cyanosis, clubbing or edema. NEUROLOGIC: Alert and oriented x3. No focal deficit. No sensory deficit. PSYCHOSOCIAL: No signs of depression. INTEGUMENTARY: No open wounds. Access: Left upper extremity AV shunt ASSESSMENT AND PLAN:33 yo M w/ESRD/HD tx, here w/cough/subjective fevers/left upper back pain,found to have left sided PNA.. Bilateral healthcare acquired pneumonia. 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 Management per nephrology Hypertension -Stable Mineral bone disorders -cont renal vitamins/phosphate binders DVT prophylaxis: SCDs Disposition:, Patient with bilateral pneumonia, gradually improving. Will continue IV antimicrobial for another 24 hours with DC planning tomorrow after dialysis if clinically stable. Patient was seen in collaboration with Result Diagram: 10/19/18 0502 10/19/18 0502 Results 24hrs Laboratory Tests Test 10/18/18 12:24 10/19/18 05:02 D-Dimer 880.72 H D-Dimer Comment White Blood Count 6.4 Red Blood Count 3.64 L Hemoglobin 11.4 L Hematocrit 34.7 L Mean Corpuscular Volume 95.3 Mean Corpuscular Hemoglobin 31.3 Mean Corpuscular Hemoglobin Concent 32.9 Red Cell Distribution Width 12.4 Platelet Count 235 # Mean Platelet Volume 10.0 Immature Granulocytes % 0.900 H Neutrophils % 70.5 Lymphocytes % 16.3 Monocytes % 9.3 Eosinophils % 2.7 Basophils % 0.3 Nucleated Red Blood Cells % 0.0 Immature Granulocytes # 0.060 H Neutrophils # 4.5 Lymphocytes # 1.0 Monocytes # 0.6 Eosinophils # 0.2 Basophils # 0.0 Nucleated Red Blood Cells # 0.0 Sodium Level 139 Potassium Level 5.1 Chloride Level 99 Carbon Dioxide Level 25 Anion Gap 15 H Blood Urea Nitrogen 35 H Creatinine 11.12 H Est Glomerular Filtrat Rate mL/min 5 L Glucose Level 95 Calcium Level 9.4 Phosphorus Level 7.1 H Total Bilirubin 0.2 Direct Bilirubin 0.00 Indirect Bilirubin 0.2 Aspartate Amino Transf (AST/SGOT) 11 L Alanine Aminotransferase (ALT/SGPT) 18 Alkaline Phosphatase 76 Total Protein 7.5 Albumin 4.0 Globulin 3.50 H Albumin/Globulin Ratio 1.14 Exam/Review of Systems Exam Vitals Vital Signs Date Temp Pulse Resp B/P (MAP) Pulse Ox O2 O2 Flow FiO2 Time Delivery Rate 10/19/18 93 08:01 10/19/18 20 95 21 07:51 10/19/18 98.1 142/91 Room Air 07:30 (108) Intake and Output 10/18/18 10/18/18 10/19/18 1515:00 23:00 07:00 IntakeIntake Total 720 ml 500 ml OutputOutput Total 1400 ml BalanceBalance -680 ml 500 ml Results Results 24hrs Laboratory Tests Test 10/18/18 12:24 10/19/18 05:02 D-Dimer 880.72 H D-Dimer Comment White Blood Count 6.4 Red Blood Count 3.64 L Hemoglobin 11.4 L Hematocrit 34.7 L Mean Corpuscular Volume 95.3 Mean Corpuscular Hemoglobin 31.3 Mean Corpuscular Hemoglobin Concent 32.9 Red Cell Distribution Width 12.4 Platelet Count 235 # Mean Platelet Volume 10.0 Immature Granulocytes % 0.900 H Neutrophils % 70.5 Lymphocytes % 16.3 Monocytes % 9.3 Eosinophils % 2.7 Basophils % 0.3 Nucleated Red Blood Cells % 0.0 Immature Granulocytes # 0.060 H Neutrophils # 4.5 Lymphocytes # 1.0 Monocytes # 0.6 Eosinophils # 0.2 Basophils # 0.0 Nucleated Red Blood Cells # 0.0 Sodium Level 139 Potassium Level 5.1 Chloride Level 99 Carbon Dioxide Level 25 Anion Gap 15 H Blood Urea Nitrogen 35 H Creatinine 11.12 H Est Glomerular Filtrat Rate mL/min 5 L Glucose Level 95 Calcium Level 9.4 Phosphorus Level 7.1 H Total Bilirubin 0.2 Direct Bilirubin 0.00 Indirect Bilirubin 0.2 Aspartate Amino Transf (AST/SGOT) 11 L Alanine Aminotransferase (ALT/SGPT) 18 Alkaline Phosphatase 76 Total Protein 7.5 Albumin 4.0 Globulin 3.50 H Albumin/Globulin Ratio 1.14 Medications Medication Current Medications IV Flush (NS 3 ml) 3 ml PER PROTOCOL IV ; Start 10/16/18 at 03:00 Ondansetron HCl (Zofran Inj) 4 mg Q6H PRN IV NAUSEA/VOMITING; Start 10/16/18 at 03:00 Acetaminophen (Tylenol Tab) 650 mg Q6H PRN PO .PAIN 1-3 OR TEMP Last administered on 10/18/18at 03:56; Admin Dose 650 MG; Start 10/16/18 at 03:00 Docusate Sodium (Colace) 100 mg Q12H PRN PO .CONSTIPATION; Start 10/16/18 at 03:00 Bisacodyl (Dulcolax) 5 mg DAILY PRN PO .CONSTIPATION; Start 10/16/18 at 03:00 Cefepime HCl 50 ml @ 100 mls/hr Q24H IVPB Last administered on 10/19/18at 03:37; Admin Dose 100 MLS/HR; Start 10/17/18 at 04:00 Vancomycin HCl (Vanco Iv Per Pharmacy) VANCOMYCIN PER PHARMACY PER PROTOCOL XX ; Start 10/16/18 at 10:30 Albuterol/ Ipratropium (Duoneb) 3 ml Q6HWA RESP THERAPY HHN Last administered on 10/19/18at 07:51; Admin Dose 3 ML; Start 10/16/18 at 14:00 Guaifenesin/ Dextromethorphan (Mucinex Dm) 1 tab BID PO Last administered on 10/19/18at 08:08; Admin Dose 1 TAB; Start 10/16/18 at 10:30 Ibuprofen (Motrin) 400 mg Q6H PRN PO MILD PAIN(1-3) OR TEMP>38C Last administered on 10/19/18 08:09; Admin Dose 400 MG; Start 10/16/18 at 10:30 Morphine Sulfate (morphine) 1 mg Q4H PRN IV SEVERE PAIN LEVEL 7-10 Last administered on 10/16/18at 23:13; Admin Dose 1 MG; Start 10/16/18 at 14:30 Calcium Acetate (Phoslo) 667 mg TID PO Last administered on 10/19/18 08:08; Admin Dose 667 MG; Start 10/17/18 at 13:00 Metoprolol Tartrate (Lopressor) 25 mg DAILY PO Last administered on 10/19/18 08:09; Admin Dose 25 MG; Start 10/18/18 at 09:00 Multivit/Ca Carb/ B Cmplx/FA/Prenat (Adelina-Fanta) 1 tab DAILY PO Last administered on 10/19/18 08:08; Admin Dose 1 TAB; Start 10/17/18 at 10:30 Sevelamer Carbonate (Renvela) 2.4 gm TID PO ; Start 10/19/18 at 13:00 ADI KATE NP October 19, 2018 09:34
--- NOTE | 2018-10-19 10:18 | PN ---
DATE: 10/16/2018 SUBJECTIVE: The patient is stable. No events overnight. OBJECTIVE: VITAL SIGNS: Blood pressure is 142/91, pulse 93, respiration 20, temperature 98.1. HEENT: Head is normocephalic. NECK: Supple. HEART: Regular rate. LUNGS: Show diminished breath sounds at the base. ABDOMEN: Soft, nontender to palpation without rebound or guarding. EXTREMITIES: Negative for clubbing, cyanosis, no edema. DERMATOLOGIC: No rashes. MUSCULOSKELETAL: No joint effusion. NEUROLOGIC: No change in exam. MEDICATIONS: Have been reviewed. LABORATORY DATA: Has been reviewed. ASSESSMENT AND PLAN: 1. End-stage renal disease. The patient had hemodialysis yesterday, tolerated well. Plan for dialy sis again tomorrow. 2. Anemia. Continue to monitor hemoglobin and hematocrit levels. Continue Epogen. 3. Mineral bone disorder, monitor calcium and phosphorus levels. The patient is hypophosphatemic. Will increase Renagel to 2500 mg with meals. 4. Hypertension continue current blood pressure regimen. Continue ultrafiltration dialysis. 5. Sepsis secondary to healthcare-associated pneumonia. The patient is completing antibiotic course . 6. Acute respiratory failure secondary to pneumonia. Patient clinically improving. Continue medica l management, continue antibiotics. Continue nebulizers. Dictated By: HANY ROY/NTS Conf#: [id number] DID#: [id number] CC: JONELLE BENAVIDES MD;*EndCC*
[2018-10-19] MEDS: SEVELAMER CARBONATE 2.4 GM PKT PO SCH ×2 (12:26→20:18)
[2018-10-20] VITALS (21 sets, daily range): BP systolic 81–129; BP diastolic 57–90; PULSE 51–103; RESP 18–22
[2018-10-20] MEDS: CEFEPIME 1GM/50 ML (PMX) 50 ML IVPB SCH (03:49)
[2018-10-20] MEDS: ALBUTEROL/IPRATROPIUM (NEB) 3 ML AMP HHN SCH ×2 (08:00→08:12)
[2018-10-20] MEDS: GUAIFENESIN/DM (SR) TAB PO SCH (08:26)
[2018-10-20] MEDS: METOPROLOL 25 MG TAB PO SCH (08:26)
[2018-10-20] MEDS: SEVELAMER CARBONATE 2.4 GM PKT PO SCH ×2 (08:26→12:13)
[2018-10-20] MEDS: IBUPROFEN 400 MG TAB PO PRN (08:26)
[2018-10-20] MEDS: MULTIVIT/CA CARB/B CMPLX/FA TAB PO SCH (08:26)
[2018-10-20] MEDS: CALCIUM ACETATE 667 MG CAP PO SCH ×2 (08:26→12:13)
--- NOTE | 2018-10-20 09:15 | PN ---
DATE: 10/20/2018 SUBJECTIVE: The patient is stable, no events overnight. The patient is scheduled for hemodialysis t katja. OBJECTIVE: VITAL SIGNS: Blood pressure is 118/83, pulse 78, respirations 22, temperature 97.6. HEENT: Head is normocephalic. NECK: Supple. HEART: Regular rate. LUNGS: Show diminished breath sounds at the base. ABDOMEN: Soft, nontender to palpation without rebound or guarding. EXTREMITIES: Negative for clubbing, cyanosis, no edema. DERMATOLOGIC: No rashes. MUSCULOSKELETAL: No joint effusion. NEUROLOGIC: No change in exam. MEDICATIONS: Reviewed. LABORATORY DATA: Reviewed. ASSESSMENT AND PLAN: 1. End-stage renal disease. The patient is scheduled for dialysis. We will dialyze for 3 hours 2k bath, calcium 2.5. 2. Anemia. Monitor hemoglobin and hematocrit levels. Continue Epogen. 3. Hyperkalemia. Continue dialysis on low potassium bath. 4. Mineral bone disorder. Monitor calcium and phosphorus levels. Continue Renagel. 5. Hypertension. Continue current blood pressure regimen. 6. Sepsis secondary to pneumonia. The patient is completing antibiotic course. 7. Acute respiratory failure secondary to pneumonia. The patient is clinically improving. Continue to monitor. Continue medical management. Dictated By: HANY COLLAZO DO NR/NTS Conf#: [id number] DID#: [id number] CC: HANY COLLAZO DO; JONELLE BENAVIDES MD;*EndCC*
--- NOTE | 2018-10-20 12:58 | PDOCDIS ---
Discharge Instructions CONDITION [id number] Patient Condition: [id number] Stable HOME CARE INSTRUCTIONS: [id number] Your diet recommendation is: [id number] Renal diet FOLLOW UP/APPOINTMENTS Follow-up Plan Follow-up with primary care physician and outpatient dialysis clinic. You are required to continue antibiotics and you should take antibiotics on dialysis days after the dialysis treatment ADI KATE NP October 20, 2018 12:58
[2018-10-20] MEDS ORDERED: LEVO500T10 PO (13:03)
[2018-10-20] MEDS ORDERED: MEDICAL NOTE (13:05)
--- NOTE | 2018-10-20 13:11 | DS ---
Date/Time of Note Date/Time of Note DATE: 10/20/18 TIME: 13:09 Discharge Summary Admission/Discharge Info Admit Date/Time October 16, 2018 at 02:56 Discharge Date/Time Discharge Diagnosis Bilateral healthcare acquired pneumonia. ESRD/HD TTS Anemia of ESRD Hyperkalemia Hypertension Mineral bone disorders Patient Condition: Stable Consults Dr. Hill, nephrology Procedures 10/18/2018: CTA chest IMPRESSION: 1. No findings of pulmonary artery thromboembolism. Dense severe left lower lobe airspace consolidation; moderate right lower lobe airspace consolidation worrisome for bilateral pneumonia. No interval change. 2. Severely atrophic bilateral red cliff kidneys compatible with chronic renal failure. Hospital Course 33 yo M w/ESRD/HD tx, here w/cough/subjective fevers/left upper back pain,found to have left sided PNA.. Patient was treated with IV cefepime and vancomycin. His symptoms started to improve. He was dialyzed per nephrology team. Patient was also noted with hyperkalemia which was addressed appropriately with hemodialysis. Patient was continued on home medication for underlying comorbidities. Patient also had associated left-sided pleuritic chest pain from pneumonia which started to improve. At this time, patient remains afebrile. No leukocytosis. He is eager to be discharged home. At this time, we have recommended one single dose 750 mg Levaquin today after dialysis followed by 500 mg every 48 hours after dialysis on dialysis day to complete a 2 weeks antibiotic course. Patient verbalized understanding. Approximately 60 m spent on coordinating the discharge on this patient. Patient was seen in collaboration with Dr. Wilson. Home Meds Active Scripts [Medical Note] No Conflict Check Please excuse Mr.Victor Pennington is hospitalized and unable to attend work from 10/16/2018 to 10/31/2018 due to his illness. Prov:ADI KATE V. AUDIO VIDEO MECHANIC 10/20/18 Levofloxacin* (Levofloxacin*) 500 Mg Tablet, 500 MG PO Q48H, #5 TAB You need to take this medicine after your dialysis treatment on scheduled dialysis days. First dose to be taken on10/22/2018. Second dose 10/24/2018, third dose 10/27/2018, fourth dose 10/29/2018 and last dose on October 31, 2018. Prov:ADI KATE V. AUDIO VIDEO MECHANIC 10/20/18 Reported Medications Multivit/Ca Carb/B Cmplx/Fa* (Adelina-Fanta*) 1 Tab Tab, 1 TAB PO DAILY for 90 Days, #90 10/16/18 Calcium Acetate* (Calcium Acetate*) 667 Mg Capsule, 2 CAP PO TID for 90 Days, #540 TAKE 2 CAPSULES (1,334 MG TOTAL) BY MOUTH THREE (3) TIMES DAILY WITH MEALS. 10/16/18 Metoprolol Tartrate* (Lopressor*) 25 Mg Tablet, 25 MG PO DAILY, TAB 10/14/14 Sevelamer Carbonate* (Renvela*) 800 Mg Tablet, 5 TAB PO TID, TAB 10/14/14 Clonidine Hcl (KAPVAY) 0.1 Mg Tab.er.12h, 0.1 MG PO DAILY 02/18/13 Follow-up Plan Follow-up with primary care physician and outpatient dialysis clinic. You are required to continue antibiotics and you should take antibiotics on dialysis days after the dialysis treatment Primary Care Provider Justin Jones MD Pending Labs Laboratory Tests Test 10/20/18 05:23 White Blood Count 6.6 10^3/ul (4.8-10.8) Red Blood Count 3.53 10^6/ul (4.70-6.10) Hemoglobin 11.1 g/dl (14.0-18.0) Hematocrit 33.2 % (42.0-52.0) Mean Corpuscular Volume 94.1 fl (82.0-101.0) Mean Corpuscular Hemoglobin 31.4 pg (29.0-33.0) Mean Corpuscular Hemoglobin Concent 33.4 g/dl (32.0-37.0) Red Cell Distribution Width 12.5 % (11.5-14.5) Platelet Count 255 10^3/UL (140-415) Mean Platelet Volume 9.6 fl (7.4-10.4) Immature Granulocytes % 1.200 % (0.001-0.429) Neutrophils % 66.7 % (39.0-77.0) Lymphocytes % 19.0 % (15.0-51.0) Monocytes % 9.8 % (0.0-11.0) Eosinophils % 3.0 % (0.0-7.0) Basophils % 0.3 % (0.0-2.0) Nucleated Red Blood Cells % 0.0 /100WBC (0.0-0.0) Immature Granulocytes # 0.080 10^3/ul (0.0-0.031) Neutrophils # 4.4 10^3/ul (1.6-7.5) Lymphocytes # 1.3 10^3/ul (0.8-2.9) Monocytes # 0.7 10^3/ul (0.3-0.9) Eosinophils # 0.2 10^3/ul (0.0-0.5) Basophils # 0.0 10^3/ul (0.0-0.1) Nucleated Red Blood Cells # 0.0 10^3/ul (0.0-0.0) Sodium Level 136 mmol/L (135-144) Potassium Level 5.2 mmol/L (3.5-5.1) Chloride Level 98 mmol/L (97-110) Carbon Dioxide Level 23 mmol/L (21-31) Anion Gap 15 (5-13) Blood Urea Nitrogen 58 mg/dl (7-20) Creatinine 14.68 mg/dl (0.61-1.24) Est Glomerular Filtrat Rate mL/min 4 mL/min (>60) Glucose Level 91 mg/dl (70-220) Calcium Level 9.3 mg/dl (8.4-10.2) Total Bilirubin 0.2 mg/dl (0.2-1.3) Direct Bilirubin 0.00 mg/dl (0.00-0.20) Indirect Bilirubin 0.2 mg/dl (0-1.1) Aspartate Amino Transf (AST/SGOT) 13 IU/L (15-46) Alanine Aminotransferase (ALT/SGPT) 16 IU/L (13-69) Alkaline Phosphatase 66 IU/L (42-121) Total Protein 6.9 g/dl (6.1-8.1) Albumin 3.9 g/dl (3.3-4.9) Globulin 3.00 g/dl (1.3-3.2) Albumin/Globulin Ratio 1.30 ADI KATE V. AUDIO VIDEO MECHANIC October 20, 2018 13:10
[2018-10-20] MEDS ORDERED: LEVOFLOXACIN 750 MG TABLET PO ONE (13:30)
[2018-10-20] MEDS ORDERED: METO25TA4 PO (15:56)
== END 2018-10-20 16:19 | disposition home or self-care (01) | DRG 871 ==
LOC: E/R 01:47 → 6WM 02:56
PROVIDERS: ADMIT Family Medicine; ATTEND Family Medicine
PROC: 5A1D70Z Performance of Urinary Filtration, Intermittent, Less than 6 Hours Per Day (ICD-10-PCS; principal; 2018-10-17)
PROC: 5A1D70Z Performance of Urinary Filtration, Intermittent, Less than 6 Hours Per Day (ICD-10-PCS; 2018-10-20)
DX: A41.9 Sepsis, unspecified organism (principal); N18.6 End stage renal disease; J18.9 Pneumonia, unspecified organism; J96.00 Acute respiratory failure, unspecified whether with hypoxia or hypercapnia; I12.0 Hypertensive chronic kidney disease with stage 5 chronic kidney disease or end stage renal disease; R07.81 Pleurodynia; E87.5 Hyperkalemia; D63.1 Anemia in chronic kidney disease; Z99.2 Dependence on renal dialysis
CPT/HCPCS: 36415; 71045; 71275; 74176; 80053; 80061; 80202; 83036; 83605; 83735; 84100; 84443; 84484; 85025; 85378; 85610; 85730; 86706; 87070; 87340; 88104; 88305; 90935; 93005; 94640; 94664; 96374; 96375; J0456; J0692; J0696; J1200; J2270; J3370; J7040; Q9967

== ENCOUNTER 2018-11-04 21:29 | Emergency (ER) | payer SELFPAY ==
[~2018-11-04] VITALS: Ht 160 cm; Wt 59.9 kg
[~2018-11-04 21:29] MED LIST changes: +CALC667C PO; -CLON0.1T95 PO; +LEVO500T10 PO; +MEDICAL NOTE; +NEPH PO
[2018-11-04 21:37] VITALS: BP 171/104; PULSE 78; RESP 20; Ht 160 cm; Wt 59.9 kg
== END 2018-11-04 23:44 | disposition left against medical advice (07) ==
LOC: E/R 21:29
DX: Z53.21 Procedure and treatment not carried out due to patient leaving prior to being seen by health care provider (principal)

== ENCOUNTER 2018-12-30 22:55 | Emergency (ER) | payer OTHER ==
[~2018-12-30] VITALS: Ht 172.7 cm; Wt 68.2 kg
[~2018-12-30 22:55] MED LIST changes: +ACET500C5 PO; +CEPH-443 PO
[2018-12-30 22:59] VITALS: Ht 172.7 cm; Wt 68.2 kg
--- NOTE | 2018-12-31 00:07 | ERD ---
ER Documentation Chief Complaint Chief Complaint left forehead lac, states accidentally hit head on table around 6pm. no ko HPI This is a 33-year-old male who presents emergency department with complaints of left forehead laceration. Stated that he was standing from a kneeling position, when he accidentally hit the corner of the table. Denies loss of consciousness. Denies loss of consciousness, dizziness, neck pain, neck stiffness, throat pain, difficulty swallowing, difficulty breathing lying flat, shoulder pain, chest pain, back pain, abdominal pain, nausea, vomiting, constipation, diarrhea, urinary symptoms, loss of bowel and bladder control, trauma, injury, falls, difficulty walking due to pain, numbness or tingling sensation, calf pain, recent travel, recent major surgery in the last 3 weeks, calf pain, recent long travel, recent exposure to any illness, recent antibiotic use in the last 3 months, fever, chills, seizures. Past medical history: Denies. Surgical history: Denies. Social: Denies smoking, use of alcoholic beverages, use of illegal drugs. ROS All systems reviewed and are negative except as per history of present illness. Medications Home Meds Active Scripts Cephalexin* (Keflex*) 500 Mg Capsule, 500 MG PO BID for 5 Days, CAP Prov:ADRIENNEILABANMICHAELAR F 12/31/18 Acetaminophen* (Tylophen*) 500 Mg Capsule, 1 CAP PO Q6H PRN for PAIN AND OR ELEVATED TEMP, #20 CAP Prov:ADRIENNEILABAN,MICHAELAR F 12/31/18 Metoprolol Tartrate* (Lopressor*) 25 Mg Tablet, 25 MG PO DAILY, #30 TAB Prov:ADI KATE NP 10/20/18 [Medical Note] No Conflict Check Please excuse Mr.Victor Pennington is hospitalized and unable to attend work from 10/16/2018 to 10/31/2018 due to his illness. Prov:ADI KATE NP 10/20/18 Levofloxacin* (Levofloxacin*) 500 Mg Tablet, 500 MG PO Q48H, #5 TAB You need to take this medicine after your dialysis treatment on scheduled dialysis days. First dose to be taken on10/22/2018. Second dose 10/24/2018, third dose 10/27/2018, fourth dose 10/29/2018 and last dose on October 31, 2018. Prov:ADI KATE NP 10/20/18 Reported Medications Multivit/Ca Carb/B Cmplx/Fa* (Adelina-Fanta*) 1 Tab Tab, 1 TAB PO DAILY for 90 Days, #90 10/16/18 Calcium Acetate* (Calcium Acetate*) 667 Mg Capsule, 2 CAP PO TID for 90 Days, #540 TAKE 2 CAPSULES (1,334 MG TOTAL) BY MOUTH THREE (3) TIMES DAILY WITH MEALS. 10/16/18 Sevelamer Carbonate* (Renvela*) 800 Mg Tablet, 5 TAB PO TID, TAB 10/14/14 Allergies Allergies: Coded Allergies: No Known Allergy (Unverified , 10/16/18) PMhx/Soc History of Surgery: Yes (Left AV fistula ) Anesthesia Reaction: No Hx Neurological Disorder: No Hx Respiratory Disorders: No Hx Cardiac Disorders: Yes (HTN) Hx Psychiatric Problems: No Hx Miscellaneous Medical Probl: No Hx Alcohol Use: No Hx Substance Use: No Hx Tobacco Use: No Smoking Status: Never smoker Physical Exam Vitals Physical Exam Const: No acute distress Head: Normocephalic. Laceration to left forehead measuring approximately 1.5 cm length. No active bleeding. No depression. Eyes: Normal Conjunctiva. Bilateral periorbital areas no swelling/discoloration/depression. No visual field loss. Extraocular movement of his eyes are within normal limits. No conjunctival injections. No signs of entrapment. ENT: Normal External Ears, Nose and Mouth. Neck: Full range of motion. No meningismus. C-spine/T-spine/L-spi ne are midline with good and full range of motion and has no swelling/deformity/bulging/point of tenderness/midline tenderness. Resp: Clear to auscultation bilaterally Cardio: Regular rate and rhythm, no murmurs Abd: Soft, non tender, non distended. Normal bowel sounds Skin: No petechiae or rashes Back: No midline or flank tenderness Ext: No cyanosis, or edema Neur: Awake and alert. Equal examining officer. Equal strength in bilateral upper and lower extremities. Sensation is intact. Follows commands. Romberg test negative. No neurological deficits. Psych: Normal Mood and Affect Results 24 hrs Current Medications Medications Dose Sig/Arturo Start Time Status Last (Trade) Ordered Route PRN Stop Time Admin Dose Reason Admin Diphtheria/ 0.5 ml ONCE ONCE 12/31/18 DC 12/31/18 Tetanus/Acell IM* 00:30 12/31/18 00:19 Pertussis 00:31 (Adacel) 1 tab ONCE ONCE 12/31/18 DC 12/31/18 Acetaminophen PO 00:30 12/31/18 00:18 / 00:31 Hydrocodone Bitart ([place] (10/325)) Lidocaine 20 ml ONCE ONCE 12/31/18 DC 12/31/18 (Xylocaine SC 00:30 12/31/18 00:19 1% (Mdv) 20 00:31 ml) Bacitracin 1 applic ONCE ONCE 12/31/18 DC 12/31/18 (Bacitracin TOP 00:30 12/31/18 00:19 Oint (Ud)) 00:31 Procedures/MDM Diagnostic tests: Offered CT of the brain/facial bones/C-spine but patient and family member strongly refused. Stated that they do not need this CT scans. Treatment: Adacel IM. [place] p.o. Procedure: Laceration repair. I explained to the patient and family members that I am not a plastic surgeon and that scarring will be visible after the repair. He verbalized understanding and verbally consented for me to do the repair. Betadine prep. Lidocaine 1% 2 cc subcu. Copious/pressure irrigation with saline and Betadine. Wound was explored. No foreign body seen. Facial bone not visualized. Ethilon 5-0 x5 simple interrupted sutures. Bacitracin and dressing was applied by EMT. Re-evaluation: No visual field loss. Extraocular movement of his eyes are within normal limits. There is no signs of entrapment. Romberg test negative. No neurological deficits. Differential diagnosis I have low suspicion for epidural hematoma, subdural hematoma, skull fracture, Le[place], orbital fracture, septal hematoma, C-spine fracture/subluxation. Final diagnosis: Head injury without loss of consciousness. Forehead laceration. Prescription: Tylenol. Keflex. Follow-up with PCP in the next 24-48 hours. Come back in 2 days for wound check. Come back in 5 to 7 days for suture removal. Come back here in the emergency department for any new symptoms or any worsening symptoms. All questions and concerns were answered. Patient and family members verbalized understanding and agreed with plan of care. Hemodynamically stable on discharge. Departure Diagnosis: Primary Impression: Forehead laceration Additional Impression: Head injury, acute, without loss of consciousness Condition: Stable Additional Instructions: Follow-up with PCP in the next 24-48 hours. Come back in 2 days for wound check. Come back in 5 to 7 days for suture removal. Come back here in the emergency department for any new symptoms or any worsening symptoms. TANVIR MAAT Dec 31, 2018 00:07
[2018-12-31] MEDS ORDERED: BACITRACIN 0.9 GM OINT TOP ONE (00:30)
[2018-12-31] MEDS ORDERED: LIDOCAINE 1% (MDV) 20 ML INJ SC ONE (00:30)
[2018-12-31] MEDS ORDERED: DIPHTH/TET/ACEL PERTUSS (ADULT) 0.5 ML VIAL IM* ONE (00:30)
[2018-12-31] MEDS ORDERED: HYDROCODONE/APAP (10/325) TAB PO ONE (00:30)
[2018-12-31 01:40] VITALS: BP 153/101; PULSE 77; RESP 19
== END 2018-12-31 01:41 | disposition home or self-care (01) ==
LOC: FTE 22:55
DX: S01.81XA Laceration without foreign body of other part of head, initial encounter (principal); I10 Essential (primary) hypertension; W22.03XA Walked into furniture, initial encounter; Y92.9 Unspecified place or not applicable; Z23 Encounter for immunization
CPT/HCPCS: 12011; 90471; 90715; Z7502; Z7610

== ENCOUNTER 2019-01-01 19:18 | Emergency (ER) | payer OTHER ==
[~2019-01-01] VITALS: Ht 162.6 cm; Wt 59.0 kg
[2019-01-01 19:20] VITALS: Ht 162.6 cm; Wt 59.0 kg
--- NOTE | 2019-01-01 20:03 | ERD ---
ER Documentation Chief Complaint Chief Complaint RECHECK FOR LACERATION ON LEFT FOREHEAD HPI 33-year-old male is here for 2-day wound check for laceration on the left side of his forehead. States the pain is improving. No fever. No bleeding or drainage. No other complaints. ROS All systems reviewed and are negative except as per history of present illness. Medications Home Meds Active Scripts Cephalexin* (Keflex*) 500 Mg Capsule, 500 MG PO BID for 5 Days, CAP Prov:PASILABAN,KLAR F 12/31/18 Acetaminophen* (Tylophen*) 500 Mg Capsule, 1 CAP PO Q6H PRN for PAIN AND OR ELEVATED TEMP, #20 CAP Prov:PASILABAN,KLAR F 12/31/18 Metoprolol Tartrate* (Lopressor*) 25 Mg Tablet, 25 MG PO DAILY, #30 TAB Prov:ADI KATE NP 10/20/18 [Medical Note] No Conflict Check Please excuse Mr.Victor Pennington is hospitalized and unable to attend work from 10/16/2018 to 10/31/2018 due to his illness. Prov:ADI KATE NP 10/20/18 Levofloxacin* (Levofloxacin*) 500 Mg Tablet, 500 MG PO Q48H, #5 TAB You need to take this medicine after your dialysis treatment on scheduled dialysis days. First dose to be taken on10/22/2018. Second dose 10/24/2018, third dose 10/27/2018, fourth dose 10/29/2018 and last dose on October 31, 2018. Prov:ADI KATE NP 10/20/18 Reported Medications Multivit/Ca Carb/B Cmplx/Fa* (Adelina-Fanta*) 1 Tab Tab, 1 TAB PO DAILY for 90 Days, #90 10/16/18 Calcium Acetate* (Calcium Acetate*) 667 Mg Capsule, 2 CAP PO TID for 90 Days, #540 TAKE 2 CAPSULES (1,334 MG TOTAL) BY MOUTH THREE (3) TIMES DAILY WITH MEALS. 10/16/18 Sevelamer Carbonate* (Renvela*) 800 Mg Tablet, 5 TAB PO TID, TAB 10/14/14 Allergies Allergies: Coded Allergies: No Known Allergy (Unverified , 10/16/18) PMhx/Soc History of Surgery: Yes (Left AV fistula ) Anesthesia Reaction: No Hx Neurological Disorder: No Hx Respiratory Disorders: No Hx Cardiac Disorders: Yes (HTN) Hx Psychiatric Problems: No Hx Miscellaneous Medical Probl: No Hx Alcohol Use: No Hx Substance Use: No Hx Tobacco Use: No FmHx Family History: No diabetes Physical Exam Vitals Vital Signs Date Temp Pulse Resp B/P (MAP) Pulse Ox O2 O2 Flow FiO2 Time Delivery Rate 01/01/19 98.1 78 18 117/72 99 19:20 (87) Physical Exam Const: No acute distress Head: Atraumatic Eyes: Normal Conjunctiva ENT: Normal External Ears, Nose and Mouth. Neck: Full range of motion. No meningismus. Resp: Clear to auscultation bilaterally Cardio: Regular rate and rhythm, no murmurs Skin: Healing laceration on left forehead with sutures in place, no surrounding erythema, no bleeding or drainage Procedures/MDM Wound healing appropriately. Return in 3 days for suture removal. Patient counseled regarding my diagnostic impression and care plan. Prior to discharge all questions answered. Pt agrees with treatment plan and understands strict return precautions. Pt is instructed to follow up with primary care provider within 24-48 hours. Precautionary instructions provided including instructions to return to the ER if not improving or for any worsening or changing symptoms or concerns. Departure Diagnosis: Primary Impression: Visit for wound check Condition: Stable Patient Instructions: Wound Check, Lac F/U (No Infection) Additional Instructions: Call your primary care doctor TOMORROW for an appointment during the next 1-2 days.See the doctor sooner or return here if your condition worsens before your appointment time. PETTY ISABEL PA-C Jan 01, 2019 20:03
[2019-01-01 20:08] VITALS: BP 131/82; PULSE 77; RESP 18
== END 2019-01-01 20:05 | disposition home or self-care (01) ==
LOC: FTE 19:18
DX: Z48.00 Encounter for change or removal of nonsurgical wound dressing (principal)
CPT/HCPCS: 99281